=== PATIENT | female | born 1970 | race Caucasian/White ===

== ENCOUNTER 2017-03-12 02:49 | Inpatient (IN) | payer OTHER ==
[~2017-03-12] VITALS: Ht 154.9 cm; Wt 61.7 kg
[~2017-03-12 02:49] MED LIST: LIPITOR10 M1 PO; MELATONIN3 M4 PO; NORVASC5 M1 PO; PROZAC10 M1 PO; VITAMIN E400 UNI2 PO; ZYRTEC10 M3 PO
--- NOTE | 2017-03-12 08:47 | Operative Report ---
Operative/Inv Procedure Report Surgery Date: 03/12/17 Name of Procedure: cystoscopy: bilateral stent insertion Pre-Operative Diagnosis: Menometrorrhagia Post-Operative Diagnosis: Same Estimated Blood Loss: scant Surgeon/Tree Wrapper: MD Ray, Raúl-urology Anesthesia: general endotracheal tube Drains: 16fr aponte Complications: none Operative/Procedure Note Note: The patient was taken to the operating room and placed on the OR table in supine position. Timeout was performed, with the patient awake, to confirm correct identify, planned procedures, anesthesia, antibiotics, and other pertinent glory -operative information. After adequate anesthesia, and IV antibiotics, the patient was placed in lithotomy Yellow-fin stirrups. She was then draped and prepped in the usual surgical fashion, including a vaginal prep. A 22 Turkish cystoscope sheath with a 30 angle lens was inserted into the bladder without significant difficulty. The bladder was thoroughly and systematically examined, and was noted to be free of tumor, free of stone, free of endometriosis. Both ureteral orifices were in their orthotopic positions with clear reflux bilaterally. Under direct visualization the left orifice was intubated with a 5 Turkish whistle-tip catheter, which was advanced easily into the left kidney pelvis. The right ureteral orifice was intubated with a second 5 Turkish ureteral whistle tip catheter, and advanced into the right renal pelvis without difficulty. For identification purposes the blue marked stent went into the left kidney, and the right ureteral stent was marked red. Urine culture was obtained and sent to pathology. The cystoscope was then removed leaving both stents in proper place. An 18 Turkish Aponte catheter was inserted draining clear fluid and 10 mL of sterile water was then placed in the balloon. The ends of the ureteral stents, which protruded externally, were taped to the Aponte catheter in order to secure their position. The individual ureteral stents were then connected to their individual drainage devices. The patient tolerated the procedure well. All sponge needle and instrument count were correct at the end of this procedure. The patient was then repositioned in supine position, and Venodynes were placed on the lower extremeties bilaterally. At this point, Dr. Bowles was able to proceed with the patient's surgery. Findings: normal bladder CC: Raúl Bell MD
--- NOTE | 2017-03-12 09:52 | Operative Report ---
Operative/Inv Procedure Report Surgery Date: 03/12/17 Name of Procedure: Total abdominal hysterectomy via Pfannenstiel skin incision bilateral salpingectomy right oophorectomy and removal of stents bilaterally Pre-Operative Diagnosis: Abnormal Pap menorrhagia Post-Operative Diagnosis: Same R right pelvic mass Estimated Blood Loss: 500 Surgeon/Service Engineer: Wilbur TITUS,Lucia Bradford MD Anesthesia: general endotracheal tube, block Operative/Procedure Note Note: Signal patient was in the upper and placed prone position after adequate induction of general anesthesia endotracheal tube V replaced stents will dictate upon the case patient was returned sponge position and was fashioned renal fancier skin incisions was cut was carried down the rectus fascia was comfortable and fashion our direction perineal cavity was entered into the abdomen soft, was placed in usual fashion patient tolerated this well this point the lap pads placed into the abdomen maligna right was identified using 0 Vicryl of the middle left identified using 0 Vicryl [id number] the bladder flap was developed sharply as well as bluntly at this point sequentially cervical ( uterine artery were clamped and cut and the right and left patient tolerated that well specimen was removed with Bovie the entire cervix was noted when given to the construction tech cuff was oversewn using running suture of interrupted figure- of-eight's of 0 as well hemostasis was apparent at this point the endopelvic artery on the right was clipped 2 and the right ovary and tube were removed there was a 5 cm hemorrhagic cyst encompassed the whole right ovary hemostasis was apparent at this point the left tube was clamped 2 and removed and oversewn using 0 Vicryl hemostasis. At this point the cuff was reexamined and we sutures the pedicles were reexamined and we sutured the abdomen was irrigated copiously with warm saline to clear the retractors attention was removed and hemostasis was apparent on the Connie was applied to the cervical cuff patient tolerated that well at this point hemostasis was apparent once into the abdomen perineum supervising 0 for surgery present continuous sutures and one subcutaneous tissue was Bovie coagulated and the skin was reapproximated using keenan at the end of the case the counts were correct at the stents were removed bilaterally intact the urine was clear at the patient was extubated and transferred recovery room awake alert the counts correct
[2017-03-13 08:00] LABS: ABSOLUTE BASOPHIL COUNT 0 /CUMM (0.0-0.2); ABSOLUTE EOSINOPHIL COUNT 0 /CUMM (0.0-0.7); MEAN CORPUSCULAR HGB 33.9 PG (27.0-31.0); RBC DISTRIBUTION WIDTH 12.8 % (11.5-14.5)
[2017-03-13 08:09] LABS: ABSOLUTE GRANULOCYTE CT 5.6 /CUMM (1.4-6.5); ABSOLUTE LYMPH COUNT 2.2 /CUMM (1.2-3.4); ABSOLUTE MONOCYTE COUNT 0.6 /CUMM (0.10-0.60); BASOPHIL % 0.3 % (0.0-2.0); EOSINOPHIL % 0.4 % (0-5); MEAN CORPUSCULAR HGB CONC 33.8 G/DL (33.0-37.0); MEAN CORPUSCULAR VOLUME 100.3 FL (81.0-99.0); MEAN PLATELET VOLUME 7.7 FL (7.4-10.4); PLATELET COUNT 202 /CUMM (130-400); WHITE BLOOD CELL COUNT 8.4 /CUMM (4.8-10.8)
[2017-03-13 08:13] LABS: HEMATOCRIT 28.5 % (37-47); RED BLOOD CELL CT 2.84 /CUMM (4.20-5.40)
[2017-03-13] MEDS ORDERED: PERCOCET 5-3251 EACH PO (09:39)
[2017-03-13] MEDS ORDERED: IBUPROFEN800 M1 PO (09:39)
--- NOTE | 2017-03-13 09:43 | PN- Post Delivery/GYN ---
Subjective Subjective: NO COMPLAINTS Objective Last 24 Hrs of Vital Signs/I&O Vital Signs Date Time Temp Pulse Resp B/P B/P Pulse O2 O2 Flow FiO2 Mean Ox Delivery Rate 03/13 0042 142/90 Physical Exam: PE THIN WFIN NAD ABD SOFT INCISION CDI EXT -EDEMA -HOMANS Assessment/Plan Assessment/Plan ASSESS S/P MAIRA RSO PLAN CONT PPC
[2017-03-14 09:37] VITALS: BP 134/86
--- NOTE | 2017-03-14 11:24 | Surgical Discharge Summary ---
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 Home Who Do You Live With? Family Services at Home: None What is Your Primary Language? Tajik Tobacco History: NA ETOH Use: occasional use Illicit Drug Use History: NA Other Addictive Behavior: NA Review of Systems: Denies nausea Denies vomiting Physical Exam: Aox3 Lungs clear Abdomen soft and wound intact with keenan No cvat Extr. No homans Neuro. Motor and sensory grossly intact upper and lower extremities Hospital Course Course Attending Physician: Lucia Bowles MD Primary Care Physician: Ne [facility] Hospital Course: Total abdominal hysterectomy via Pfannenstiel skin incision bilateral salpingectomy right oophorectomy and removal of stents bilaterally Complications: None Allergies: Coded Allergies: No Known Allergies (08/21/15) Significant Procedures: Total abdominal hysterectomy via Pfannenstiel skin incision bilateral salpingectomy right oophorectomy and removal of stents bilaterally Pertinent Lab Results: Hct of 28 MCV 100.3 Urine culture negative Disposition Summary Disposition Principal Diagnosis: Abnormal pap Menorrhagia Additional Diagnosis: Pelvic mass Discharge Disposition: home or self care Discharge Instructions General Discharge Information Code Status: Full Code Patient's Diet: Regular Patient's Activity: As tolerated Follow-Up Instructions/Appts: One week with Dr Bowles for staple removal Medications at Discharge Discharge Medications: Continue taking these medications: Vitamin E Mixed (Vitamin E) 400 UNIT TABLET 2 ORAL DAILY Cetirizine HCl (Zyrtec) 10 MG TABLET 1 Tablet ORAL DAILY Fluoxetine HCl (Prozac) 10 MG CAPSULE 1 Capsule ORAL DAILY Amlodipine Besylate (Norvasc) 5 MG TABLET 1 Tablet ORAL DAILY Atorvastatin Calcium (Lipitor) 10 MG TABLET 1 Tablet ORAL DAILY Melatonin (Melatonin) 3 MG TABLET 1 Tablet ORAL Every night Comments: PATIENT TAKES LIQUID AND UNSURE OF CORRECT DOSE Start taking the following new medications: Ibuprofen (Ibuprofen) 800 MG TABLET 800 Milligram ORAL EVERY SIX HOURS NEEDED as needed for PAIN Qty = 30 No Refills Comments: Last Taken: 03/14/17 Time: 0805 Oxycodone HCl/Acetaminophen (Percocet 5-325 MG Tablet) 5 MG-325 MG TABLET 1 Tablet ORAL EVERY 4 HOURS NEEDED as needed for PAIN Qty = 30 No Refills Comments: Last Taken: 03/14/17 Time: 0945 Copies To: Wilbur TITUS,Lucia Saini MD Review Statement Attending Statement Attending MD Statement: examined this patient, discussed w/nursing Attending Assessment/Plan: Wound care instructions reviewed Pain mgmt strategies reviewed VTE risk reduction strategies reviewed Continue taking daily vitamins for nutritional support and anemia correction.
== END 2017-03-14 10:30 | DRG 743 ==
LOC: SDA 02:49 → ENRESERV 10:21 → ENTRNSPT 11:31 → EDTRNSPT 11:35 → EDTRNSPTSTS 11:35 → CMPTRNSPT 11:43 → GNO 12:00
PROVIDERS: Specialist
PROC: 0UT90ZZ Resection of Uterus, Open Approach (ICD-10-PCS; principal; 2017-03-12)
PROC: 0UT70ZZ Resection of Bilateral Fallopian Tubes, Open Approach (ICD-10-PCS; 2017-03-12)
PROC: 0UT00ZZ Resection of Right Ovary, Open Approach (ICD-10-PCS; 2017-03-12)
PROC: 0T788DZ Dilation of Bilateral Ureters with Intraluminal Device, Via Natural or Artificial Opening Endoscopic (ICD-10-PCS; 2017-03-12)
DX: N92.0 Excessive and frequent menstruation with regular cycle (principal); E78.5 Hyperlipidemia, unspecified; I10 Essential (primary) hypertension; R89.6 Abnormal cytological findings in specimens from other organs, systems and tissues; F32.9 Major depressive disorder, single episode, unspecified; F10.20 Alcohol dependence, uncomplicated
CPT/HCPCS: GNOS; 81025; 87086; C9399; J0131; J0690; J0694; J1170; J1200; J1650; J1885; J2405; Q2036